=== PATIENT | male | born 1980 | race Caucasian/White ===

== ENCOUNTER 2017-09-16 00:03 | Emergency (ER) | payer OTHER ==
[~2017-09-16] VITALS: Ht 165.1 cm; Wt 68.0 kg
[~2017-09-16 00:03] MED LIST: CYCL10 PO; HYDACE5 PO; RXCYCL10 PO; RXHYDACE PO
[2017-09-17 05:27] LABS: HCV Non Reactive (NR)
== END 2017-09-16 00:34 | disposition home or self-care (01) ==
LOC: ER 00:03
PROVIDERS: Emergency Medicine
DX: S60.410A Abrasion of right index finger, initial encounter (principal); Z77.21 Contact with and (suspected) exposure to potentially hazardous body fluids; Z23 Encounter for immunization; Z88.8 Allergy status to other drugs, medicaments and biological substances; X58.XXXA Exposure to other specified factors, initial encounter; Y99.0 Civilian activity done for income or pay
CPT/HCPCS: 12001; 36415; 84460; 86706; 86803; 87389; 90471; 90714; 99283

== ENCOUNTER → 2018-01-23 | Outpatient (CLI) | payer OTHER ==
[2018-01-25 05:07] LABS: HIV SCREEN 4TH GENERATION WRFX Non Reactive (Non Reactive)
== END | disposition home or self-care (01) ==
LOC: LAB EV 14:29 → LAB SHORT 14:29
PROVIDERS: General Practice
DX: Z20.9 Contact with and (suspected) exposure to unspecified communicable disease (principal)
CPT/HCPCS: 86803; 87389

== ENCOUNTER → 2021-01-04 | Outpatient (CLI) | payer OTHER | END | disposition home or self-care (01) | LOC: LAB SHORT 07:40 | DX: R35.0 Frequency of micturition (principal) | CPT/HCPCS: 87086 ==

== ENCOUNTER → 2021-06-12 | Outpatient (CLI) | payer OTHER | LOC: LAB SHORT 10:19 → LAB 10:19 | DX: J02.9 Acute pharyngitis, unspecified (principal) | CPT/HCPCS: 87081 ==